=== PATIENT | female | born 1965 | race Caucasian/White ===

== ENCOUNTER → 2020-05-16 | Outpatient (CLI) | payer OTHER ==
[~2020-05-16] MED LIST: PANT20TA4 PO; VITAMIN D
== END | disposition home or self-care (01) ==
LOC: STAR 12:35
PROVIDERS: ATTEND Urology
DX: Z20.822 Contact with and (suspected) exposure to COVID-19 (principal); N20.0 Calculus of kidney
CPT/HCPCS: 87635

== ENCOUNTER 2020-05-20 10:06 | Day surgery (SDC) | payer OTHER ==
[~2020-05-20] VITALS: Ht 167.6 cm; Wt 72.0 kg
[2020-05-20 10:22] VITALS: BP 132/85
[2020-05-20] MEDS ORDERED: CHLORHEXIDINE 15 ML UDC MM ONE (10:30)
[2020-05-20] MEDS ORDERED: LACTATED RINGERS 1,000 ML IV SCH (10:30)
[2020-05-20] MEDS ORDERED: MIDAZOLAM 1 MG/ML, 2ML ONE (11:29)
[2020-05-20] MEDS ORDERED: FENTANYL PF 100 MCG/2ML ONE ×2 (11:29→12:35)
[2020-05-20] MEDS ORDERED: SCOPOLAMINE 1MG PATCH TD SCH (11:30)
[2020-05-20] MEDS ORDERED: SCOPOLAMINE 1MG PATCH TD ONE (11:31)
[2020-05-20] MEDS ORDERED: LIDOCAINE-MPF 1%, 2ML ONE (11:37)
[2020-05-20] MEDS ORDERED: ONDANSETRON 2MG/ML, 2ML ONE ×2 (11:37→13:18)
[2020-05-20] MEDS ORDERED: CEFAZOLIN 1,000 MG ONE (11:37)
[2020-05-20] MEDS ORDERED: DEXAMETHASONE 4 MG/ML, 1ML ONE (11:37)
[2020-05-20] MEDS ORDERED: PROPOFOL 10 MG/ML, 20ML ONE (11:37)
[2020-05-20] MEDS ORDERED: OXYcodone 5 MG/5 ML ORAL.SOL UDC ONE (12:36)
[2020-05-20] MEDS ORDERED: ACETAMINOPHEN 325 MG TABLET ONE (12:36)
[2020-05-20] MEDS ORDERED: ACETAMINOPHEN 650 MG/20.3 ML UDC ONE (12:37)
[2020-05-20] MEDS: FENTANYL PF 100 MCG/2ML IV PRN ×4 (12:40→13:20)
[2020-05-20] MEDS: OXYcodone 5 MG/5 ML ORAL.SOL UDC PO PRN ×2 (12:45→14:46)
[2020-05-20] MEDS ORDERED: PROMETHAZINE 25 MG/ML, 1ML ONE (12:50)
[2020-05-20] MEDS ORDERED: MEPERIDINE/PF 25MG/ML,1ML ONE (12:52)
[2020-05-20] MEDS ORDERED: ONDANSETRON 2MG/ML, 2ML IVPush PRN (13:00)
[2020-05-20] MEDS ORDERED: PROMETHAZINE 25 MG/ML, 1ML IVPush PRN (13:00)
[2020-05-20] MEDS: MEPERIDINE/PF 25MG/0.5ML IVPush PRN ×2 (13:00→13:30)
[2020-05-20] MEDS ORDERED: ACETAMINOPHEN 325 MG TABLET PO PRN (13:00)
[2020-05-20] MEDS ORDERED: OPIUM/BELLADONNA SUPP.RECT 16.2-60 MG ONE (15:08)
[2020-05-20] MEDS ORDERED: OPIUM/BELLADONNA SUPP.RECT 16.2-60 MG PR ONE (15:30)
[2020-05-20] MEDS ORDERED: KETOROLAC 30 MG/1 ML ONE (16:12)
[2020-05-20] MEDS ORDERED: KETOROLAC 30 MG/1 ML IVPush ONE (16:30)
[2020-05-21] MEDS ORDERED: HYDR-3237 PO (16:10)
== END 2020-05-20 16:55 | disposition home or self-care (01) ==
LOC: OUT 10:06
PROVIDERS: ATTEND Urology
DX: N20.0 Calculus of kidney (principal); Z79.899 Other long term (current) drug therapy; Z87.442 Personal history of urinary calculi; Z90.710 Acquired absence of both cervix and uterus
CPT/HCPCS: 52353; C1758; C1769; J1885; J2175; J2250; J2405; J2550; J3010; J7120; 76000; J0690; J1100; J2704

== ENCOUNTER 2020-05-21 12:13 | Inpatient (IN) | payer OTHER ==
[~2020-05-21] VITALS: Ht 167.6 cm; Wt 75.0 kg
--- NOTE | 2020-05-21 12:38 | NUR ---
PT TO ROOM 8 W/ C/O R FLANK PAIN. PT HAS HX KIDNEY STONES AND HAD LITHOTRIPSY DONE YESTERDAY. PT STATES PAIN IS INCREASED FROM LITHOTRIPSY. C/O PAIN 10/10 AT THIS TIME. PT RESTING ON GURNEY. VSS. PIV INITIATED. MONITORS APPLIED. WARM BLANKET PROVIDED.
[2020-05-21] MEDS ORDERED: SODIUM CHLORIDE FLUSH 10ML SYR IVF ONE (13:00)
[2020-05-21] MEDS ORDERED: ONDANSETRON 2MG/ML, 2ML IVPush ONE (13:00)
[2020-05-21] MEDS ORDERED: ONDANSETRON 2MG/ML, 2ML ONE (13:03)
[2020-05-21] MEDS ORDERED: HYDROmorphone 1 MG/ML, 1ML INJ ONE ×2 (13:03→15:11)
[2020-05-21] MEDS: HYDROmorphone 2 MG/ML, 1ML IVPush PRN ×3 (13:06→20:07)
--- NOTE | 2020-05-21 13:10 | NUR ---
PT RESTING ON [facility]. MEDICATED PER JUN. VSS.
--- NOTE | 2020-05-21 13:21 | NUR ---
REPORT GIVEN TO DENITA PLAZA.
[2020-05-21 13:28] LABS: BASOPHILS % (AUTO) 0 % (0-1); EOSINOPHILS % (AUTO) 0 % (1-7); LYMPHOCYTES % (AUTO) 18 % (22-44); MEAN CORPUSCULAR HEMOGLOBIN 30.2 pg (27.0-34.8); MEAN CORPUSCULAR HGB CONC 33.7 g/dL (32.4-35.8); MEAN PLATELET VOLUME 9.8 fL (7.4-10.4); MONOCYTES % (AUTO) 6 % (2-9); NEUTROPHILS % (AUTO) 76 % (42-75); PLATELET COUNT 349 x10^3/uL (130-400); RED CELL DISTRIBUTION WIDTH 13.1 % (9.6-15.2)
[2020-05-21 13:29] LABS: ALBUMIN 3.6 g/dL (3.4-5.0); ANION GAP 10 mmol/L (5-15); CALCIUM 8.9 mg/dL (8.5-10.1); CHLORIDE 111 mmol/L (98-107)
[2020-05-21 13:33] LABS: ALANINE AMINOTRANSFERASE 23 U/L (12-78); ALKALINE PHOSPHATASE 92 U/L (45-117); BILIRUBIN,TOTAL 0.3 mg/dL (0.2-1.0); CREATININE 1.05 mg/dL (0.55-1.02); TOTAL PROTEIN 7.3 g/dL (6.4-8.2)
[2020-05-21 13:36] LABS: HCG UR SG 1.025 (1.003-1.030); MICROSCOPIC INDICATED
--- NOTE | 2020-05-21 13:46 | NUR ---
PT REPORTS RELIEF IN PAIN AFTER MEDS. RESTING ON GURNEY W/ CALL LIGHT IN REACH AND SIDE RAIL UPX2. RESP EVEN AND UNLABORED, DARIO. AWAITING CT.
[2020-05-21 13:52] LABS: MD SCAN
--- NOTE | 2020-05-21 13:55 | NUR ---
PT TO CT.
--- NOTE | 2020-05-21 14:56 | NUR ---
ALL TESTS RESULTED. PT IS UP FOR RECHECK AT THIS TIME.
--- NOTE | 2020-05-21 15:09 | NUR ---
AT BEDSIDE FOR RECHECK.
--- NOTE | 2020-05-21 15:16 | NUR ---
PT AMBULATED TO THE BR W/ A STANDY BY ASSIST. REPORTS URINE. RETURNED TO [facility] W/O INCIDENT. PT MEDICATED PER EMAR. PLACED ON 2L NC FOR SAFETY.
--- NOTE | 2020-05-21 15:58 | NUR ---
PT REPORTS RELIEF IN PAIN AFTER MEDS. PAIN NOW 2/10 FROM 09/19.
--- NOTE | 2020-05-21 16:01 | NUR ---
AT BEDSIDE TO UPDATE PT AND FAMILY ON POC FOR ADMIT.
[2020-05-21] MEDS ORDERED: HYDR-3237 PO (16:10)
[2020-05-21] MEDS ORDERED: CEFTRIAXONE PMX 1GM/50ML 50 ML ONE (16:25)
[2020-05-21] MEDS ORDERED: SODIUM CHLORIDE 0.9% 1,000 ML IV ONE (16:30)
[2020-05-21] MEDS ORDERED: SODIUM CHLORIDE FLUSH 10ML SYR IVF PRN (16:30)
[2020-05-21] MEDS ORDERED: CEFTRIAXONE PMX 1GM/50ML 50 ML IVPB ONE (17:00)
--- NOTE | 2020-05-21 17:25 | NUR ---
PT RESTING ON GURNEY W/ CALL LIGHT IN REACH, SIDE RAILS UPX2 AND FAMILY AT BEDSIDE. RESP EVEN AND UNLABORED, DARIO.
[2020-05-21 19:20] VITALS: BP 133/89
[2020-05-21] MEDS ORDERED: hydrALAzine 20 MG/ML, 1ML IVPush PRN (19:30)
[2020-05-21] MEDS ORDERED: POLYETHYLENE GLYCOL 17 GM PACKET PO PRN (19:30)
[2020-05-21] MEDS ORDERED: GABAPENTIN 300 MG CAPSULE PO PRN (19:30)
[2020-05-21] MEDS ORDERED: ACETAMINOPHEN 325 MG TABLET PO PRN (19:30)
[2020-05-21] MEDS ORDERED: ONDANSETRON ODT 4 MG PO PRN (19:30)
[2020-05-21] MEDS ORDERED: BISACODYL 10 MG SUPP PR PRN (19:30)
[2020-05-21] MEDS: ONDANSETRON 2MG/ML, 2ML IVPush PRN (20:07)
[2020-05-21] MEDS: D5%-LR+KCL 20MEQ 1,000 ML IV SCH (20:39)
[2020-05-21] MEDS ORDERED: MELATONIN 5 MG TABLET PO PRN (21:00)
[2020-05-21] MEDS: OXYcodone IR 5MG TABLET PO PRN (22:50)
[2020-05-22 01:13] VITALS: BP 114/62
[2020-05-22] MEDS: HYDROmorphone 2 MG/ML, 1ML IVPush PRN ×3 (01:31→08:56)
[2020-05-22] MEDS: D5%-LR+KCL 20MEQ 1,000 ML IV SCH ×2 (05:50→17:26)
[2020-05-22] MEDS: ONDANSETRON 2MG/ML, 2ML IVPush PRN (06:01)
[2020-05-22 06:08] LABS: BASOPHILS % (AUTO) 1 % (0-1); EOSINOPHILS % (AUTO) 1 % (1-7); LYMPHOCYTES % (AUTO) 27 % (22-44); MD NO; MEAN CORPUSCULAR HEMOGLOBIN 30.7 pg (27.0-34.8); MEAN CORPUSCULAR HGB CONC 33.9 g/dL (32.4-35.8); MEAN PLATELET VOLUME 9.2 fL (7.4-10.4); MONOCYTES % (AUTO) 6 % (2-9); NEUTROPHILS % (AUTO) 66 % (42-75); PLATELET COUNT 276 x10^3/uL (130-400); RED BLOOD COUNT 3.67 x10^6/uL (3.82-5.3); RED CELL DISTRIBUTION WIDTH 13.5 % (9.6-15.2)
[2020-05-22 06:19] LABS: ALANINE AMINOTRANSFERASE 21 U/L (12-78); ANION GAP 5 mmol/L (5-15); CALCIUM 8.3 mg/dL (8.5-10.1); CHLORIDE 114 mmol/L (98-107); CREATININE 0.84 mg/dL (0.55-1.02)
[2020-05-22 06:30] LABS: ALKALINE PHOSPHATASE 70 U/L (45-117); BILIRUBIN,TOTAL 0.2 mg/dL (0.2-1.0); TOTAL PROTEIN 5.8 g/dL (6.4-8.2)
[2020-05-22 07:19] VITALS: BP 131/83
[2020-05-22] MEDS ORDERED: PANTOPRAZOLE 40 MG IV IVPush SCH (07:30)
[2020-05-22] MEDS: SENNA/DOCUSATE TABLET PO SCH (08:07)
[2020-05-22] MEDS ORDERED: BUTALB/APAP/CAFFEINE 50MG/325MG/40MG PO PRN (08:30)
[2020-05-22] MEDS ORDERED: CHLORHEXIDINE 15 ML UDC ONE (11:59)
[2020-05-22] MEDS ORDERED: CHLORHEXIDINE 15 ML UDC MM STA (12:00)
[2020-05-22] MEDS ORDERED: MIDAZOLAM 1 MG/ML, 2ML ONE (12:13)
[2020-05-22] MEDS ORDERED: FENTANYL PF 100 MCG/2ML ONE (12:14)
[2020-05-22] MEDS ORDERED: SCOPOLAMINE 1MG PATCH TD ONE (12:21)
[2020-05-22] MEDS ORDERED: SCOPOLAMINE 1MG PATCH TD SCH (12:30)
[2020-05-22] MEDS ORDERED: PROMETHAZINE 25 MG/ML, 1ML ONE (13:26)
[2020-05-22] MEDS ORDERED: HYDROmorphone 1 MG/ML, 1ML INJ IVPush PRN (13:30)
[2020-05-22] MEDS ORDERED: MEPERIDINE/PF 25MG/0.5ML IVPush PRN (13:30)
[2020-05-22] MEDS ORDERED: OXYcodone 5 MG/5 ML ORAL.SOL UDC PO PRN (13:30)
[2020-05-22] MEDS ORDERED: HYDROcodone/APAP 7.5-325MG/15ML UDC PO PRN (13:30)
[2020-05-22] MEDS ORDERED: PROMETHAZINE 25 MG/ML, 1ML IVPush PRN (13:30)
[2020-05-22] MEDS ORDERED: KETOROLAC 30 MG/1 ML IVPush PRN (13:30)
[2020-05-22] MEDS ORDERED: ONDANSETRON 2MG/ML, 2ML IVPush PRN (13:30)
[2020-05-22] MEDS ORDERED: FENTANYL PF 100 MCG/2ML IV PRN (13:30)
[2020-05-22 14:47] VITALS: BP 142/72
[2020-05-22] MEDS ORDERED: PROPOFOL 10 MG/ML, 20ML ONE (14:50)
[2020-05-22] MEDS ORDERED: DEXAMETHASONE 4 MG/ML, 1ML ONE (14:50)
[2020-05-22] MEDS ORDERED: ONDANSETRON 2MG/ML, 2ML ONE (14:50)
[2020-05-22] MEDS ORDERED: SUCCINYLCHOLINE 20 MG/ML, 10ML ONE (14:50)
[2020-05-22] MEDS ORDERED: CEFTRIAXONE PMX 2GM/50ML 50 ML IVPB SCH (16:30)
[2020-05-22 18:31] VITALS: BP 114/75
[2020-05-23 00:09] VITALS: BP 100/58
[2020-05-23] MEDS: OXYcodone IR 5MG TABLET PO PRN (02:00)
[2020-05-23] MEDS: ONDANSETRON 2MG/ML, 2ML IVPush PRN (02:20)
[2020-05-23 03:49] VITALS: BP 106/65
[2020-05-23] MEDS: D5%-LR+KCL 20MEQ 1,000 ML IV SCH (03:55)
[2020-05-23 04:42] LABS: BASOPHILS % (AUTO) 1 % (0-1); EOSINOPHILS % (AUTO) 0 % (1-7); LYMPHOCYTES % (AUTO) 12 % (22-44); MEAN CORPUSCULAR HEMOGLOBIN 30.2 pg (27.0-34.8); MEAN CORPUSCULAR HGB CONC 33.9 g/dL (32.4-35.8); MEAN PLATELET VOLUME 9.1 fL (7.4-10.4); MONOCYTES % (AUTO) 8 % (2-9); NEUTROPHILS % (AUTO) 79 % (42-75); PLATELET COUNT 294 x10^3/uL (130-400); RED BLOOD COUNT 3.59 x10^6/uL (3.82-5.3); RED CELL DISTRIBUTION WIDTH 12.9 % (9.6-15.2)
[2020-05-23 04:47] LABS: MD NO
[2020-05-23 04:51] LABS: ANION GAP 6 mmol/L (5-15); CALCIUM 8.5 mg/dL (8.5-10.1); CHLORIDE 111 mmol/L (98-107); CREATININE 0.72 mg/dL (0.55-1.02)
[2020-05-23 07:10] VITALS: BP 112/77
[2020-05-23] MEDS ORDERED: ESOMEPRAZOLE 40 MG IV IVPush SCH (07:30)
[2020-05-23] MEDS: SENNA/DOCUSATE TABLET PO SCH (09:11)
[2020-05-23] MEDS ORDERED: AMOX1TAB64 PO (12:59)
[2020-05-23] MEDS ORDERED: OXYC10TA6 PO (12:59)
[2020-05-23] MEDS ORDERED: ONDA4TAB13 PO (12:59)
[2020-05-23] MEDS ORDERED: POLY17PO5 PO (12:59)
[2020-05-23] MEDS ORDERED: SENN-211 PO (12:59)
== END 2020-05-23 14:21 | disposition home or self-care (01) | DRG 661 ==
LOC: ED 14:23 → EDIP 16:10 → 4NE 18:08 → DCLOUNGE 05-23 14:12
PROVIDERS: ADMIT Internal Medicine; ATTEND Internal Medicine
PROC: 0T9B70Z Drainage of Bladder with Drainage Device, Via Natural or Artificial Opening (ICD-10-PCS; 2020-05-21)
PROC: 0TC68ZZ Extirpation of Matter from Right Ureter, Via Natural or Artificial Opening Endoscopic (ICD-10-PCS; 2020-05-22)
PROC: 0T768DZ Dilation of Right Ureter with Intraluminal Device, Via Natural or Artificial Opening Endoscopic (ICD-10-PCS; principal; 2020-05-22 12:00)
DX: N13.2 Hydronephrosis with renal and ureteral calculous obstruction (principal); D72.829 Elevated white blood cell count, unspecified; E87.6 Hypokalemia; K22.70 Barrett's esophagus without dysplasia; Z82.49 Family history of ischemic heart disease and other diseases of the circulatory system; Z90.710 Acquired absence of both cervix and uterus; Z91.012 Allergy to eggs; Z91.018 Allergy to other foods; Z20.822 Contact with and (suspected) exposure to COVID-19; R31.9 Hematuria, unspecified
CPT/HCPCS: 36415; 74018; 74176; 80048; 80053; 81001; 81025; 83605; 83735; 84100; 84443; 85025; 87040; 87086; 87635; 96365; 96375; 99285; G0378; J0696; J1100; J1170; J2250; J2405; J2550; J2704; J3010; Q0162; C1769; C2617; C9113; J0330; J3480; J7030